=== PATIENT | male | born 1965 | race Caucasian/White ===

== ENCOUNTER 2016-06-15 05:25 | Day surgery (SDC) | payer MEDICARE, MEDICAID ==
[~2016-06-15] VITALS: Ht 203.2 cm; Wt 95.3 kg
[~2016-06-15 05:25] MED LIST: DEXILANT60 MG PO; HYDROCODONE-APA1 TAB PO; MOBIC7.5 MG PO; NEXIUM40 MG PO; TOPAMAX25 MG PO
[2016-06-15 08:21] VITALS: BP 118/63; Ht 203.2 cm; Wt 95.3 kg
--- NOTE | 2016-06-15 13:36 | NUR ---
1300--IV DC'D. [facility] POOL 1330--DISCHARGE INSTRUCTIONS GIVEN, PT VERBALIZES UNDERSTANDING. PT OFF UNIT VIA WC. [facility] POOL
--- NOTE | 2016-07-13 09:50 | OP ---
PATIENT NAME: JULISSA MANLEY MEDICAL RECORD: [id number] :63 LOCATION:[facility] ADMISSION DATE: SURGEON: YANDEL ALVARADO DPM DATE OF OPERATION: 06/15/2016 PREOPERATIVE DIAGNOSES: 1. Calcaneal spur, right heel. 2. Achilles tendon disruption. POSTOPERATIVE DIAGNOSES: 1. Calcaneal spur, right heel. 2. Achilles tendon disruption. PROCEDURES: 1. Gastroc recession, right leg. 2. Calcaneal spur resection, right foot. 3. Achilles repair, right foot. ANESTHESIA: Preoperative popliteal block per the anesthesia department as well as general anesthesia. HEMOSTASIS: Right thigh tourniquet at 350 mmHg. PREOPERATIVE DETAILS: The patient was taken to the OR. Following induction of general anesthesia, the patient was placed on the operating table in a prone position. The right extremity was then prepped and draped in the usual aseptic technique followed by exsanguination and inflation of tourniquet. PROCEDURE NUMBER 1: Gastroc recession, right leg. A 15-blade was used to create a 3 cm linear incision over the posterior aspect of the gastroc aponeurosis. The incision was deepened down through subcutaneous tissue bluntly down to the peritenon and linear incision made through the peritenon and retracting the peritenon and the foot held in dorsiflexion and incision was made through the gastroc aponeurosis allowing normal dorsiflexion at the ankle joint. The wound was flushed and the skin was closed with skin kale. PROCEDURE NUMBER 2: Calcaneal spur resection, right posterior calcaneus. A 15-blade was used to create an incision on the posterior aspect of the right calcaneus just medial to midline, longitudinal running from proximal to distal and then a horizontal incision that was approximately at 2 cm in diameter at the distal most part of the longitudinal incision. The incision was deepened down through subcutaneous tissue to the Achilles tendon. The peritenon was freed from the Achilles tendon, it was freed from the posterior aspect of the calcaneus. There was noted to be significant spurring and disruption of the Achilles tendon at the insertion. Following the detachment of the rest of the Achilles tendon, a sagittal saw was used to resect the posterior spurring and enlargement. The wound was flushed. At this time, utilizing suture bridge technique, the Achilles tendon was repaired. PROCEDURE NUMBER 3: Achilles tendon repair, right foot. A 4 holes were made in this posterior aspect of the calcaneus with suture passing up through the Achilles tendon, securing the tendon down to the posterior aspect of the calcaneus in a very secure and rigid manner allowing dorsiflexion at the ankle with excellent rigid fixation. The wound was flushed. The peritenon was repaired with 2-0 Vicryl as well as deep tissue. The subcutaneous tissue was OPERATIVE REPORT [id number] JULISSA MANLEY closed with 4-0 Rapide and the skin was closed with 4-0 Rapide in a subcuticular technique followed by Dermabond, Adaptic, 4 x 4 and Conform were used to dress the wound followed by application of a Padilla compression dressing. Tourniquet was deflated. POSTOPERATIVE DETAILS: The patient tolerated the procedure well and left the OR with vital signs stable and vascular status at preoperative levels. The patient was transported to recovery per anesthesia in stable condition. TRANSINT:[id number] Voice Confirmation ID: [id number] DOCUMENT ID: [id number] YANDEL ALVARADO DPM at 0950 CC: [id number] DICTATION DATE: 06/15/16 1057 [facility] SECRETARY: 06/15/16 1212 [facility] 06/15/16 [place] [id number] [place] [address]
== END 2016-06-15 13:30 | disposition home or self-care (01) ==
LOC: D.OPS 05:25 → D.PAN 09:30 → D.OPS 09:30
DX: M77.31 Calcaneal spur, right foot (principal); S86.011A Strain of right Achilles tendon, initial encounter

== ENCOUNTER 2017-08-29 14:20 | Emergency (ER) | payer MEDICARE, MEDICAID ==
[2016-06-15 08:21] VITALS: BMI 23.1
== END 2017-08-29 16:05 | disposition left against medical advice (07) ==
LOC: D.ER 14:20
DX: R07.81 Pleurodynia (principal)

== ENCOUNTER → 2019-03-11 07:41 | Outpatient (CLI) | payer MEDICARE, MEDICAID ==
[2016-06-15 08:21] VITALS: BMI 23.1
== END | disposition home or self-care (01) ==
LOC: D.RAD 07:41
PROVIDERS: ATTEND Internal Medicine Gastroenterology
DX: R13.10 Dysphagia, unspecified (principal); K21.9 Gastro-esophageal reflux disease without esophagitis